=== PATIENT | female | born 1985 | race Caucasian/White ===

== ENCOUNTER 2022-05-15 12:39 | Emergency (ER) | payer OTHER ==
--- OUTSIDE RECORDS SUMMARY | 2022-05-15 12:43 | XMS REPORT | Continuity of Care Document ---
:1985 Author Organization Formerly [facility] t Address [address] [place] [address] Care Team Providers Name Role Phone MARTINE GRIGSBY Primary Care Physician Unavailable FAITH PILLAI Attending Clinician Unavailable Faith Pillai MD Attending Clinician RIA FERRO Attending Clinician Unavailable Ria Ferro PA-C Attending Clinician MARTINE GRIGSBY Attending Clinician Unavailable Xin Lewis DO Attending Clinician Martine Grigsby MD Attending Clinician Lexx Ayala MD Attending Clinician LEXX AYALA Attending Clinician Unavailable LEXX AYALA Attending Clinician Unavailable Pob, [facility] Main Attending Clinician Unavailable Deana Perez Attending Clinician DEANA RUST Attending Clinician Unavailable Doctor Unassigned, [place] Attending Clinician Unavailable Nurse, [facility] Attending Clinician Unavailable Payers Payer Name Policy Type Policy Number Effective Date Expiration Date Adiel SCHMITT II [id number] 2020 00:00:00 Problems Condition Condition Condition Status Onset Resolution Last Treating Co mments Source Name Details Category Date Date Treatment Clinician Date Chlamydia Chlamydia Disease Active Uni vers trachomati trachomati 07-12 it y of s s 00:00: [place] infection infection 00 Medi irena of lower of lower Branch genitourin genitourin aida sites aida sites Positive Positive Disease Active Unive rs AMANDA AMANDA 01-13 ity of (antinucle [place]ant[place]ucle [place] Medical antibody) antibody) Bran ch Depression Depression Disease Active U nivers , , 7 ity of unspecifie unspecifie [place] 00 Medical depression depression Br anch type type Abnormal Abnormal Disease Active Unive rs EKG EKG 12-22 ity of 00:00: [place] [facility] 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 hypothyroi [place] dism dism [place] Abnormal Abnormal Disease Active Unive rs LFTs LFTs 12-16 ity of 00:00: [place] [facility] Anxiety as Anxiety as Disease Active U nivers acute acute 6 ity of reaction reaction 00:00: [place] to to 00 Medical exceptiona exceptiona Br anch l stress l stress Panic Panic Disease Active Univers attack as attack as 11-20 ity of reaction reaction 00:00: [place] to stress to stress 00 [facility] Palpitatio Palpitatio Disease Active U nivers ns ns 6- ity of 00:00: [place] 00 Medical Branch History of History of Disease Active U nivers adult adult 6-07 ity of psychologi psychologi [place] irena abuse irena abuse 00 [facility] Nexplanon Nexplanon Disease Active Uni vers in place in place 5-18 ity of 00:00: [place] [facility] Second Second Disease Active Univers hand smoke hand smoke 3-04 it y of exposure exposure 00:00: [place] [facility] Bacterial Bacterial Disease Active 2014-06 Overview: Univers vaginosis vaginosis 07-04 Formattin i ty of 00:00: g of this [place] 00 note Medical might be Branch different from the original. Flagyl ordered 5 Dental Dental Disease Active 2014-06 Univers caries caries -18 ity of 00:00: [place] 00 Medical Branch Allergies, Adverse Reactions, Alerts Allergy Allergy Status Severity Reaction(s) Onset Inactive Treating Comm ents Source Name Type Date Date Clinician SULFA Drug Active Other-Cmnt 2017-0 Univer s (SULFONA Class 8-22 ity of MIDE 00:00: [place] ANTIBIOT 00 Medical ICS) Branch Sulfa Propensi Active Other - See Fever, Uni vers (Sulfona ty to comments 8-22 muscle ity of mide adverse 00:00: pain [place] Antibiot reaction 00 Medica l ics) s Branch Social History Social Habit Start Date Stop Date Quantity Comments Source Exposure to Not sure [facility] SARS-CoV-2 (event) Medica l Branch History SDOH [facility] [place] Alcohol Frequency Medical Branch History SDOH [facility] [place] Alcohol Std Drinks Medica l Branch History SDOR [facility] [place] Alcohol Binge Medical [facility] Alcohol intake 2021-05-09 2021-05-09 0 /d [facility] 00:00:00 00:00:00 Medical Branch Alcohol Comment 2016-11-20 2016-11-20 occasional [facility] 00:00:00 00:00:00 Medical Branch Tobacco use and 2013-11-15 2013-11-15 Never used [employer] [facility] exposure 00:00:00 00:00:00 Medical Branch Sex [birth year] [facility] 00:00:00 00:00:00 Medical Branch Smoking Status Start Date Stop Date Source Never smoker [facility] Medical Branch Medications Ordered Filled Start Stop Current Ordering Indication Dosage Frequency Signature Comments Components Source Medication Medication Date Date Medication? Clinician (SIG) Name Name metroNIDAZO 2020-06- No [id number] 500mg Take 1 Univers LE (FLAGYL) 1-26 12-04 tablet by it y of 500 mg 00:00: 05:59 mouth 2 [place] tablet 00 :00 (two) Medical times Branch daily for 7 days. metroNIDAZO Yes [id number] 500mg Take 1 Univers LE 500 mg 8-06 tablet by ity o f tablet 00:00: mouth [place] 00 every 12 Medical (twelve) Branch hours. metroNIDAZO Yes [id number] 500mg Take 1 Univers LE 500 mg 8-06 tablet by ity o f tablet 00:00: mouth [place] 00 every 12 Medical (twelve) Branch hours. escitalopra Yes [id number] 20mg Take 1 Univers m oxalate 4-26 tablet by ity o f (LEXAPRO) 00:00: mouth [place] 20 mg 00 daily. Medical tablet Branch escitalopra Yes [id number] 20mg Take 1 Univers m oxalate 10-09 tablet by itmarquita o f (LEXAPRO) 00:00: mouth [place] 20 mg 00 daily. Medical tablet Branch etonogestre Yes 68mg 68 mg by Un baljinder L 4-09 Subdermal ity of (NEXPLANON) 11:01: route once [place] 68 mg 49 now. Medical implant Branch etonogestre Yes 68mg 68 mg by Un baljinder L 4-09 Subdermal ity of (NEXPLANON) 11:01: route once [place] 68 mg 49 now. Medical implant Branch Immunizations Ordered Filled Immunization Date Status Comments [facility] e Immunization Name Name TDAP 2015-07-05 Completed University of 00:00:00 [facility] Rho (d) Immune 2015-07-05 Completed University of Globulin 00:00:00 [facility] TDAP 2015-07-05 Completed University of 00:00:00 [facility] Rho (d) Immune 2015-07-05 Completed University of Globulin 00:00:00 [facility] TDAP 2014-05-06 Completed University of 00:00:00 [facility] TDAP 2014-05-06 Completed [facility] 00:00:00 [facility] Vital Signs Vital Name Observation Time Observation Value Comments Source Systolic blood 2021-05-09 16:51:00 112 mm[Hg] Univer sity of pressure [facility] Diastolic blood 2021-05-09 16:51:00 73 mm[Hg] Unive rsity of [facility] Heart rate 2021-05-09 16:51:00 69 /min [facility] Body temperature 2021-05-09 16:51:00 36.78 Maria Teresa [facility] Respiratory rate 2021-05-09 16:51:00 18 /min [facility] Body height 2021-05-09 16:51:00 162.6 cm [facility] Body weight 2021-05-09 16:51:00 66.225 kg [facility] BMI 2021-05-09 16:51:00 25.06 kg/m2 [facility] Procedures This patient has no known procedures. Encounters Start End Encounter Admission Attending Care Care Encounter Source Date/Time Date/Time Type Type Clinicians Facility Department ID 2021-04-16 Emergency [facility] [id number] Univers 08:42:16 ity [facility] [place] 2022-05-13 2022-05-13 Outpatient R PILLAI FAITH [facility] [id number] Univers 09:30:00 09:30:00 ity [facility] [place] 2021-05-11 2021-05-11 Case Beba Pillaien [facility] [id number] Univers 00:00:00 00:00:00 Management Dre BURGER [id number] ity [id number] PROFESS[place] [phone] Ct dic[address] 2021-05-09 2021-05-09 Outpatient R KASIE [facility] [id number] Univers 10:30:00 11:25:51 RIA sow [facility] [place] 2021-05-09 2021-05-09 Outpatient R KASIE [facility] [id number] Univers 10:30:00 11:25:51 RIA sow [facility] [place] 2021-05-09 2021-05-09 Office Faith Pillai Dre [facility] [id number] Univers 10:19:57 11:25:51 Visit Ria Ferro [id number] ity of [id number] [phone] Ct dical NAL [address] [place] [address] 2021-01-19 2021-01-19 Case Jarrell Ferro [id number] Univers 00:00:00 00:00:00 Management Ria Pediatric [id number] [place]y [id number] Adult [phone] [address] 2021-01-18 2021-01-18 Office Kasie [facility] [id number] Univers 13:42:47 14:11:18 Visit Ria Burger [id number] i ty [id number] Profess[place] [phone] Ct dical nal [address] [facility] 2021-01-18 2021-01-18 Outpatient R KASIE [facility] [id number] Univers 13:45:00 13:45:00 RIA ity [facility] [place] 2021-01-17 2021-01-17 [facility]phone [facility] [id number] Univers 00:00:00 00:00:00 Ria Burger [id number] i ty [id number] Profess[place] [phone] Ct dical nal 134 [facility] 2021-01-08 2021-01-08 [facility] [id number] Univers 08:15:00 08:15:00 WONDIFUL ity o f [facility] 2020-12-29 2020-12-29 Outpatient R [facility] [id number] Univers 17:00:00 17:00:00 ity [facility] [place] 2020-12-29 2020-12-29 Emergency [facility] [id number] Univers 12:28:00 14:28:00 Xin Burger [id number] [id number] [phone] [facility] [address] [place] 2020-10-09 2020-10-09 Office [facility] [id number] Univers 08:24:30 08:49:36 [facility] [id number] ity of [place] [id number] Kiran as Professio [phone] Ct dical nal [address] [place] [address] [facility] 2020-10-09 2020-10-09 [facility] [id number] Univers 08:00:00 08:00:00 WONDIFUL ity o f [facility] 2020-09-22 2020-09-22 Office Jamie [facility] [id number] Univers 10:49:48 11:48:59 Visit Lexx Burger [id number] [id number] Profess[place] [phone] Ct dical nal 092 [facility] 2020-09-22 2020-09-22 Outpatient R LEXX AYALA [facility] [id number] Univers 10:40:00 10:40:00 LEXX AYALA magi [facility] [place] 2020-09-08 2020-09-08 Orthopedic Shoe Fitter Kristyn, [facility] Lab Main [facility] [id number] Univers 12:54:30 13:09:30 Visit Deana Rust [id number] [id number] Professio [phone] Ct dical nal 353 [facility] 2020-09-08 2020-09-08 Office Barrera [facility] [id number] Univers 11:28:55 12:51:29 Visit Deana A [facility] [id number] i ty of [place] [id number] Kiran as Professio [phone] [facility] [address] [place] Office [facility] One 2020-09-08 2020-09-08 Outpatient R BARRERA [facility] [id number] Univers 12:45:00 12:45:00 DEANA sow [facility] [place] 2020-09-08 2020-09-08 Outpatient R BARRERA [facility] [id number] Univers 11:30:00 11:30:00 DEANA sow [facility] [place] 2020-09-08 2020-09-08 Orders Doctor POOJA [id number] Univers 00:00:00 00:00:00 Only Unassigned, MARTI [id number] ity of [facility] [id number] Kiran as [phone] [address] 2020-05-17 2020-05-17 Nurse Nurse, [facility] Women's Health [facility] [id number] Univers 15:10:59 15:25:59 Visit Faith Pillaiton [id number] [id number] Profess[place] [phone] Ct dic[address] 2020-05-17 2020-05-17 Outpatient R [facility] [id number] Univers 15:00:00 15:00:00 ity [facility] [place] 2020-05-17 2020-05-17 Telephone Faith Pillai [facility] [id number] Univers 00:00:00 00:00:00 Dre [place] [id number] i ty [id number] Profess[place] [phone] [address] 2020-05-09 2020-05-09 Office Faith Pillai [facility] [id number] Univers 15:57:23 16:45:56 Visit Dre Burger [id number] i [id number] Profess[place] [phone] [address] 2020-05-09 2020-05-09 Outpatient R FAITH PILLAI [facility] [id number] Univers 15:45:00 15:45:00 ity [facility] [place] 2020-05-09 2020-05-09 Orders Doctor POOJA [id number] Univers 00:00:00 00:00:00 Only Unassigned, MARTI [id number] ity of [place] [facility] [id number] Kiran as [phone] [address] 2020 2020 Office [facility] [id number] Univers 12:36:50 14:00:33 Visit Ria [place] [id number] i ty [id number] [phone] [address] 2020 2020 Outpatient R KASIE [facility] [id number] Univers 13:00:00 13:00:00 RIA ity [facility] [place] 2020-05-01 2020-05-01 Telemedici [facility] [id number] Univers 15:38:34 17:26:33 ne Visit Martine [facility] [id number] ity of [place] [id number] Kiran as Professio [phone] Ct dical [facility] [address] [place] Office [facility] One 2020-05-01 2020-05-01 [facility] [id number] Univers 15:00:00 15:00:00 WONDIFUL ity o f [facility] 2020-04-25 2020-04-25 Case [facility] [id number] Univers 00:00:00 00:00:00 Management Ria [place] [id number] [id number] Profess[place] [phone] Ct dical nal 134 [facility] 2020-04-24 2020-04-24 Office [facility] [id number]..[id number] Univers 16:18:43 16:46:38 Visit Ria [place] 350.1.13.10 i ty [id number] Profess[place] [phone] Ct dical nal [address] [place] [address] 2020-04-24 2020-04-24 [facility] [id number] Univers 16:15:00 16:15:00 RIA sow [facility] [place] 2020-04-24 2020-04-24 Telephone [facility] 1..840.114 [id number] Univers 00:00:00 00:00:00 Ria [place] [id number] i ty [id number] Profess[place] [phone] Ct dical nal [address] [place] [address] 2019-12-02 2019-12-02 [facility] [id number] Univers 15:45:00 15:45:00 RIA sow [facility] [place] 2019-09-27 2019-09-27 Telemedici [facility] 1..840.114 [id number] [facility] 10:13:24 10:43:24 ne Visit Ria Burger [id number] [id number] [phone] [address] 2019-09-27 2019-09-27 Outpatient R KASIE [facility] [id number] Univers 10:15:00 10:15:00 RIA ity [facility] [place] 2019-09-27 2019-09-27 Outpatient R [facility] [id number] Univers 10:00:00 10:00:00 itmarquita [facility] [place] 2019-09-21 2019-09-21 Telephone [facility] 1.2.840.114 [id number] [facility] 00:00:00 00:00:00 Ria Burger [id number] i ty [id number] [phone] [address] 2019-03-03 2019-03-03 Office Kasie [facility] [id number] [facility] 15:45:59 16:20:53 Visit Ria Burger [id number] i [id number] [phone] [address] Results This patient has no known results.
--- NOTE | 2022-05-15 13:39 | RAD REPORT ---
EXAM DESCRIPTION: RAD - Chest Pa And Lat (2 Views) - 05/15/2022 1:33 pm CLINICAL HISTORY: CHEST PAIN COMPARISON: None FINDINGS: Lines: None. Lungs: No evidence of edema or pneumonia. Pleural: No significant pleural effusions or pneumothorax. Cardiac: The heart size is within normal limits. Mediastinum: Within normal limits. Bones: No acute fractures. Other: None IMPRESSION: No acute cardiopulmonary disease.
[2022-05-15 13:49] LABS: Absolute Lymphocytes (CBC) 1.9 K/uL (0.7-4.9); Hematocrit 39.2 % (36.0-45.0); Lymphocytes % 26.3 % (15.3-44.8); MCV 88.5 fL (80-100); MPV 6.9 fL (7.6-11.3); RBC Red Blood Cell Count 4.43 M/uL (3.86-4.86)
[2022-05-15] MEDS ORDERED: LORAZEPAM 1 MG TABLET ONE (13:54)
[2022-05-15 14:48] LABS: Bilirubin Total 1.1 mg/dL (0.2-1.0); Potassium 3.4 mmol/L (3.5-5.1); Protein, Total 7.8 g/dL (6.4-8.2); Troponin High Sensitivity 3.4 pg/mL (<58.9)
[2022-05-15 15:00] LABS: Thyroid Stimulating Hormone 5.39 uIU/mL (0.360-3.740)
--- NOTE | 2022-05-15 15:26 | ER ---
Nurse's Notes [facility] Name: Yesenia Guajardo Age: 37 yrs Sex: Female : 1985 Arrival Date: 05/15/2022 Time: 12:42 Bed Treatment Private MD: Diagnosis: Chest pain, unspecified Presentation: 05/15 13:59 Chief complaint: Patient states: left sided chest pain for a couple days , worse today. iw Coronavirus screen: At this time, the client does not indicate any symptoms associated with coronavirus-19. Ebola Screen: Patient negative for fever greater than or equal to 101.5 degrees Fahrenheit, and additional compatible Ebola Virus Disease symptoms Patient denies exposure to infectious person. Patient denies travel to an Ebola-affected area in the 21 days before illness onset. No symptoms or risks identified at this time. Initial Sepsis Screen: Does the patient meet any 2 criteria? No. Patient's initial sepsis screen is negative. Does the patient have a suspected source of infection? No. Patient's initial sepsis screen is negative. Risk Assessment: Do you want to hurt yourself or someone else? Patient reports no desire to harm self or others. Onset of symptoms was May 13, 2022. 13:59 Method Of Arrival: Ambulatory iw 13:59 Acuity: DAYSI 3 iw Triage Assessment: 15:00 General: Appears in no apparent distress. Behavior is calm, cooperative. iw Historical: - Allergies: 13:59 Sulfa (Sulfonamide Antibiotics); iw - Home Meds: 13:59 None [Active]; iw - Immunization history:: Adult Immunizations unknown. - Family history:: not pertinent. - Social history:: Smoking status: unknown. Screenin:21 Abuse screen: Denies threats or abuse. Denies injuries from another. Nutritional iw screening: No deficits noted. Tuberculosis screening: No symptoms or risk factors identified. Fall Risk None identified. Assessment: 14:00 General: Appears uncomfortable, Behavior is anxious. Pain: Complains of pain in iw anterior aspect of left upper chest Pain does not radiate. Pain Pain began 2-3 days ago. Is intermittent, episodic. Neuro: Level of Consciousness is awake, alert, obeys commands, Oriented to person, place, time, situation, Moves all extremities. Cardiovascular: Capillary refill < 3 seconds in bilateral fingers Patient's skin is warm and dry. Respiratory: Respiratory effort is even, unlabored, Respiratory pattern is regular, symmetrical. Vital Signs: 13:58 BP 126 / 63; Pulse 103; Resp 18; Temp 97.0; Pulse Ox 100% on R/A; iw ED Course: 12:42 Patient arrived in ED. as 13:00 Calderon Clark MD is Attending Physician. rt 13:35 Chest Pa And Lat (2 Views) XRAY In Process Unspecified. EDMS 13:51 Mindy Lewis RN is Primary Nurse. iw 13:59 Triage completed. iw 14:00 Patient has correct armband on for positive identification. Pulse ox on. iw 16:00 Arm band placed on. iw 16:22 No provider procedures requiring assistance completed. IV discontinued, intact, iw bleeding controlled, No redness/swelling at site. Pressure dressing applied. Patient maintains SpO2 saturation greater than 95% on room air. Administered Medications: 14:00 Drug: Ativan (LORazepam) 1 mg Route: PO; iw 14:20 Follow up: Response: No adverse reaction iw Medication: 14:00 VIS not applicable for this client. iw Outcome: 15:25 Discharge ordered by . rt 16:22 Discharged to home ambulatory, with friend. iw 16:22 Condition: good 16:22 Discharge instructions given to patient, Instructed on discharge instructions, follow up and referral plans. Demonstrated understanding of instructions, follow-up care. 16:23 Patient left the ED. iw Signatures: Dispatcher [employer] Marisa Novak as Mindy Lewis RN RN iw Calderon Clark MD MD rt
--- NOTE | 2022-05-15 15:26 | EDPHYS ---
Physician Documentation [facility] Name: Yesenia Guajardo Age: 37 yrs Sex: Female : 1985 Arrival Date: 05/15/2022 Time: 12:42 Bed Treatment Private MD: ED Physician Calderon Clark HPI: 05/15 13:08 This 37 yrs old Female presents to ER via Unassigned with complaints of Anxiety, Chest rt Pain. 13:08 The patient or guardian reports chest pain that is located primarily in the anterior rt aspect of left upper chest. The pain does not radiate. The chest pain is described as aching. Modifying factors: The symptoms are alleviated by nothing. the symptoms are aggravated by nothing. Severity of pain: At its worst the pain was moderate. Presents to the ED with 3 days of intermittent left-sided chest pain. Patient has reported anxiety with tingling over her fingers. Denies other acute complaints at this time. Symptoms are moderate severity, no other aggravating alleviating factors. Historical: - Allergies: 13:59 Sulfa (Sulfonamide Antibiotics); iw - Home Meds: 13:59 None [Active]; iw - Immunization history:: Adult Immunizations unknown. - Family history:: not pertinent. - Social history:: Smoking status: unknown. ROS: 13:08 Constitutional: Negative for fever, chills, and weight loss, Eyes: Negative for injury, rt pain, redness, and discharge, ENT: Negative for injury, pain, and discharge, Neck: Negative for injury, pain, and swelling, Respiratory: Negative for shortness of breath, cough, wheezing, and pleuritic chest pain, Abdomen/GI: Negative for abdominal pain, nausea, vomiting, diarrhea, and constipation, MS/Extremity: Negative for injury and deformity, Skin: Negative for injury, rash, and discoloration, Neuro: Negative for headache, weakness, numbness, tingling, and seizure. 13:08 Cardiovascular: Positive for chest pain, Negative for edema. 13:08 Neuro: Positive for tingling, Negative for altered mental status. 13:08 Psych: Positive for anxiety, Negative for suicidal ideation. Exam: 13:08 Constitutional: This is a well developed, well nourished patient who is awake, alert, rt and in no acute distress. Head/Face: Normocephalic, atraumatic. Eyes: Pupils equal round and reactive to light, extra-ocular motions intact. Lids and lashes normal. Conjunctiva and sclera are non-icteric and not injected. Cornea within normal limits. Periorbital areas with no swelling, redness, or edema. Neck: Trachea midline, no thyromegaly or masses palpated, and no cervical lymphadenopathy. Supple, full range of motion without nuchal rigidity, or vertebral point tenderness. No Meningismus. Chest/axilla: Normal chest wall appearance and motion. Nontender with no deformity. No lesions are appreciated. Cardiovascular: Regular rate and rhythm with a normal S1 and S2. No gallops, murmurs, or rubs. Normal PMI, no JVD. No pulse deficits. Respiratory: Lungs have equal breath sounds bilaterally, clear to auscultation and percussion. No rales, rhonchi or wheezes noted. No increased work of breathing, no retractions or nasal flaring. Abdomen/GI: Soft, non-tender, with normal bowel sounds. No distension or tympany. No guarding or rebound. No evidence of tenderness throughout. Back: No spinal tenderness. No costovertebral tenderness. Full range of motion. Skin: Warm, dry with normal turgor. Normal color with no rashes, no lesions, and no evidence of cellulitis. MS/ Extremity: Pulses equal, no cyanosis. Neurovascular intact. Full, normal range of motion. Neuro: Awake and alert, GCS 15, oriented to person, place, time, and situation. Cranial nerves II-XII grossly intact. Motor strength 5/5 in all extremities. Sensory grossly intact. Cerebellar exam normal. Normal gait. 13:08 Psych: Anxious, affect congruent. 14:57 ECG was reviewed by the Attending Physician. rt Vital Signs: 13:58 BP 126 / 63; Pulse 103; Resp 18; Temp 97.0; Pulse Ox 100% on R/A; iw MDM: 13:01 Patient medically screened. rt 15:25 Differential diagnosis: acute myocardial infarction, anxiety, coronary artery disease rt chest wall pain, pneumonia, pneumothorax, pulmonary embolus. HEART Score: History: Slightly Suspicious (0), ECG: Normal (0), Age: < or = 45 years (0), Risk Factors: 1 or 2 risk factors (1), Troponin: < or = 1 x Normal Limit (0), Total Score = 1. Data reviewed: vital signs, nurses notes, lab test result(s), EKG, radiologic studies. ED course: Presents to the ED with a chest pain. Symptoms are improving in the ED. She has a nonischemic EKG, normal troponin. This is sufficient to rule out acute coronary syndrome given chronicity of the symptoms. There is no significant thyroid abnormalities, lab abnormalities. Do not suspect PE. Patient is stable for outpatient care, return precautions discussed.. 05/15 13:07 Order name: CBC with Diff; Complete Time: 14:36 rt 05/15 13:07 Order name: CMP; Complete Time: 15:20 rt 05/15 13:07 Order name: Test, Serum; Complete Time: 14:36 rt 05/15 13:07 Order name: TSH; Complete Time: 15:20 rt 05/15 13:07 Order name: Troponin High Sensitivity; Complete Time: 15:20 rt 05/15 15:04 Order name: T4 Free; Complete Time: 15:20 EDMS 05/15 13:07 Order name: EKG; Complete Time: 13:08 rt 05/15 13:07 Order name: EKG - Nurse/Tech; Complete Time: 15:05 rt 05/15 13:07 Order name: Chest Pa And Lat (2 Views) XRAY; Complete Time: 13:43 rt 05/15 13:53 Order name: Labs - recollect needed: recollect light green; Complete Time: 14:16 bd EC:57 Rate is 84 beats/min. Rhythm is regular, Normal Sinus Rhythm with No ectopy. Right axis rt deviation noted. DE interval is normal. QRS interval is normal. QT interval is normal. No Q waves. T waves are Normal. No ST changes noted. Interpreted by me. Administered Medications: 14:00 Drug: Ativan (LORazepam) 1 mg Route: PO; iw 14:20 Follow up: Response: No adverse reaction iw Disposition Summary: 05/15/22 15:25 Discharge Ordered Location: Home rt Problem: an ongoing problem rt Symptoms: have improved rt Condition: Stable rt Diagnosis - Chest pain, unspecified rt Followup: rt - With: Private Physician - When: 2 - 3 days - Reason: Discharge Instructions: - Discharge Summary Sheet rt - Nonspecific Chest Pain, Adult rt Forms: - Medication Reconciliation Form rt - Thank You Letter rt - Antibiotic Education rt - Work release form iw - Prescription Opioid Use rt Signatures: [facility] Marci Asencio Irene, KAYLA RN Calderon Quintero MD MD rt
[2022-05-15 16:52] VITALS: BP 126/63; TEMP 97; O2SAT 100
--- NOTE | 2022-05-16 13:22 | EKG ---
Test Date: 2022-05-15 Test Time: 14:52:11 Flight Manager: YINKA MEASUREMENT RESULTS: Intervals: Rate: 84 [place]: 160 QRSD: 94 QT: 382 QTc: 451 [place]: P: 73 [place]: 160 QRS: 94 T: 46 INTERPRETIVE STATEMENTS: Normal sinus rhythm Rightward axis Borderline ECG No previous ECG available for comparison Electronically Signed On 05-16-22 13:21:41 HORTICULTURALIST by Mk Ty
== END 2022-05-15 16:23 | disposition home or self-care (01) ==
LOC: ER 12:39
DX: R07.9 Chest pain, unspecified (principal); Z88.2 Allergy status to sulfonamides
CPT/HCPCS: 36415; 71046; 80053; 84439; 84443; 84484; 84703; 85025; 93005; 99284